=== PATIENT | male | born 1945 | race American Indian/Alaskan Native ===

== ENCOUNTER 2017-06-18 15:13 | Emergency (ER) | payer MEDICARE ==
[2017-06-18 15:24] VITALS: BP 133/69
--- NOTE | 2017-06-18 15:40 | EDM.PDOC ---
ED HPI GENERAL MEDICAL PROBLEM - General Chief Complaint: ENT Problem Stated Complaint: EAR INFECTION [id number] Time Seen by Provider: 06/18/17 15:30 Source of Information: Reports: Patient, RN, RN Notes Reviewed History Limitations: Reports: No Limitations - History of Present Illness INITIAL COMMENTS - FREE TEXT/NARRATIVE: Pt presents to the ER with c/o left ear itching and pain for about 1 week. He states he has been itching the ear and feels he may have scratched it and gotten an infection. He denies sinus problems, headache, cough, sore throat, fever, or chills. Onset: Gradual Left Ear Pain Score (Numeric/FACES): 5 - Related Data Allergies Allergy/AdvReac Type Severity Reaction Status Date / Time No Known Allergies Allergy Verified 06/18/17 15:19 Home Meds: Home Meds Aspirin 81 mg PO ONETIME 04/14/15 [History] Lisinopril 10 mg PO DAILY 04/14/15 [History] Past Medical History HEENT History: Reports: None Cardiovascular History: Reports: High Cholesterol, Hypertension Respiratory History: Reports: None Gastrointestinal History: Reports: None Genitourinary History: Reports: None Musculoskeletal History: Reports: None Neurological History: Reports: None Psychiatric History: Reports: None Endocrine/Metabolic History: Reports: None Hematologic History: Reports: None Immunologic History: Reports: None Oncologic (Cancer) History: Reports: None Dermatologic History: Reports: None - Infectious Disease History Infectious Disease History: Reports: None - Past Surgical History Head Surgeries/Procedures: Reports: None Social & Family History - Family History Family Medical History: Noncontributory - Tobacco Use Smoking Status *Q: Never Smoker Used Tobacco, but Quit: No Second Hand Smoke Exposure: No - Caffeine Use Caffeine Use: Reports: Coffee - Recreational Drug Use Recreational Drug Use: No ED ROS ENT - Review of Systems Review Of Systems: ROS reveals no pertinent complaints other than HPI. ED EXAM, ENT - Physical Exam Exam: See Below Exam Limited By: No Limitations General Appearance: Alert, WD/WN, No Apparent Distress Eye Exam: Bilateral Eye: EOMI, Normal Inspection Ears: Normal External Exam, Hearing Grossly Normal, Canal Discharge, TM Erythema Nose: Normal Inspection Mouth/Throat: Normal Inspection, Normal Gums, Normal Lips, Normal Oropharynx, Normal Teeth Head: Atraumatic, Normocephalic Neck: Normal Inspection, Supple, Non-Tender, Full Range of Motion Respiratory/Chest: No Respiratory Distress, Lungs Clear, Normal Breath Sounds, No Accessory Muscle Use, Chest Non-Tender Cardiovascular: Normal Peripheral Pulses, Regular Rate, Rhythm, No Edema, No Gallop, No JVD, No Murmur, No Rub GI/Abdominal: Normal Bowel Sounds, Soft, Non-Tender, No Organomegaly, No Distention, No Abnormal Bruit, No Mass (Male) Exam: Deferred Rectal (Males) Exam: Deferred Back: Normal Inspection, Full Range of Motion Extremities: Normal Inspection, Normal Range of Motion, Non-Tender, No Pedal Edema, Normal Capillary Refill Neurological: Alert, Oriented, CN II-XII Intact, Normal Cognition, Normal Gait, Normal Reflexes, No Motor/Sensory Deficits Psychiatric: Normal Affect, Normal Mood Skin: Warm, Dry, Intact, Normal Color, No Rash Lymphatic: No Adenopathy Course - Vital Signs Last Recorded V/S: Last Vital Signs Temp 98.1 F 06/18/17 15:24 Pulse 52 L 06/18/17 15:24 Resp 16 06/18/17 15:24 BP 133/69 06/18/17 15:24 Pulse Ox 98 06/18/17 15:24 Departure - Departure Time of Disposition: 15:37 Disposition: Home, Self-Care 01 Condition: Good Clinical Impression: Otitis media Qualifiers: Otitis media type: suppurative Chronicity: acute Laterality: left Recurrence: not specified as recurrent Spontaneous tympanic membrane rupture: without spontaneous rupture Qualified Code(s): H66.002 - Acute suppurative otitis media without spontaneous rupture of ear drum, left ear - Discharge Information Instructions: Otitis Media, Adult, [id number] Referrals: PCP,None [Primary Care Provider] - Forms: ED Department Discharge Additional Instructions: Follow up with your primary care facility if no improvement. RX: Amoxicillin
== END 2017-06-18 15:53 | disposition home or self-care (01) ==
LOC: DL.ED 15:13
DX: H66.002 Acute suppurative otitis media without spontaneous rupture of ear drum, left ear (principal); E78.00 Pure hypercholesterolemia, unspecified; I10 Essential (primary) hypertension; Z79.82 Long term (current) use of aspirin; Z79.899 Other long term (current) drug therapy
CPT/HCPCS: 99282; 99283

== ENCOUNTER 2021-02-21 11:49 | Emergency (ER) | payer MEDICARE ==
[2021-02-21 13:31] VITALS: BP 153/73; PULSE 59
--- NOTE | 2021-02-21 14:16 | EDM.PDOC ---
<Kevyn García Cayla - Last Filed: 02/21/21 14:23> ED HPI GENERAL MEDICAL PROBLEM - General Chief Complaint: Upper Extremity Injury/Pain Stated Complaint: RIGHT ARM INFECTION Time Seen by Provider: 02/21/21 13:30 Source of Information: Reports: Patient History Limitations: Reports: No Limitations - History of Present Illness INITIAL COMMENTS - FREE TEXT/NARRATIVE: 75 y/o M c/o 2 raised lesions on his posterior R forearm that appeared several days ago. Pt states the lesions have been draining some clear fluid and are moderately tender to palpation. Denies feve, cigh, chills, drugs, IV drugs, etoh, Onset: Gradual Duration: Day(s): Location: Reports: Upper Extremity, Right Quality: Reports: Sharp Severity: Mild Improves with: Reports: None Worsens with: Reports: None right arm Pain Score (Numeric/FACES): 6 - Related Data Allergies Allergy/AdvReac Type Severity Reaction Status Date / Time No Known Allergies Allergy Verified 02/21/21 13:31 Home Meds: Home Meds Aspirin 81 mg PO ONETIME 04/14/15 [History] atenoloL [Atenolol] 25 mg PO DAILY 02/21/21 [History] atorvaSTATin [Lipitor] 10 mg PO BEDTIME 02/21/21 [History] Past Medical History HEENT History: Reports: None Cardiovascular History: Reports: High Cholesterol, Hypertension Respiratory History: Reports: None Gastrointestinal History: Reports: None Genitourinary History: Reports: None Musculoskeletal History: Reports: None Neurological History: Reports: None Psychiatric History: Reports: None Endocrine/Metabolic History: Reports: None Hematologic History: Reports: None Immunologic History: Reports: None Oncologic (Cancer) History: Reports: None Dermatologic History: Reports: None - Infectious Disease History Infectious Disease History: Reports: None - Past Surgical History Head Surgeries/Procedures: Reports: None Social & Family History - Family History Family Medical History: No Pertinent Family History - Tobacco Use Tobacco Use Status *Q: Never Tobacco User - Caffeine Use Caffeine Use: Reports: Coffee - Recreational Drug Use Recreational Drug Use: No Review of Systems - Review of Systems Review Of Systems: Comprehensive ROS is negative, except as noted in HPI. ED EXAM, GENERAL - Physical Exam Exam: See Below Exam Limited By: No Limitations General Appearance: Alert, WD/WN, No Apparent Distress Respiratory/Chest: No Respiratory Distress, Lungs Clear, Normal Breath Sounds, No Accessory Muscle Use, Chest Non-Tender Cardiovascular: Normal Peripheral Pulses, Regular Rate, Rhythm, No Edema, No Gallop, No JVD, No Murmur, No Rub Peripheral Pulses: 2+: Radial (L), Radial (R) GI/Abdominal: Soft, Non-Tender (Male) Exam: Deferred Rectal (Males) Exam: Deferred Back Exam: Normal Inspection, Full Range of Motion Extremities: Other (2, 1.5 cm raised lesions on posterior forearm with some Serosanguineous drainage) Course - Re-Assessments/Exams Free Text/Narrative Re-Assessment/Exam: 02/21/21 14:24 Discussed exam findings with patient and informed about the RX for Keflex. Pt understood instructions. Departure - Departure Time of Disposition: 14:25 Disposition: Home, Self-Care 01 Condition: Good Clinical Impression: Skin abscess Qualifiers: Site of cutaneous abscess: extremity Site of cutaneous abscess of extremity: upper extremity Laterality: right Qualified Code(s): L02.413 - Cutaneous abscess of right upper limb - Discharge Information *PRESCRIPTION DRUG MONITORING PROGRAM REVIEWED*: Not Applicable *COPY OF PRESCRIPTION DRUG MONITORING REPORT IN PATIENT SHIRLEY: Not Applicable Instructions: Skin Abscess, [id number] Forms: ED Department Discharge Additional Instructions: RX: Keflex Use tylenol or ibuprofen for pain as needed. If symptoms do not improve in one week contact your primary care facility. If any new symptoms or concerns develop contact your primary care facility or return to the ER. <Timoteo Casey - Last Filed: 02/21/21 14:30> Course - Vital Signs Last Recorded V/S: Last Vital Signs Temp 97.6 F 02/21/21 13:27 Pulse 59 L 02/21/21 13:27 Resp 20 02/21/21 13:27 BP 153/73 H 02/21/21 13:27 Pulse Ox 98 02/21/21 13:27 Sepsis Event Note (ED) - Focused Exam Vital Signs: Vital Signs Temp Pulse Resp BP Pulse Ox 02/21/21 13:27 97.6 F 59 L 20 153/73 H 98
== END 2021-02-21 14:54 | disposition home or self-care (01) ==
LOC: DL.ED 11:49
DX: L02.413 Cutaneous abscess of right upper limb (principal); E78.00 Pure hypercholesterolemia, unspecified; I10 Essential (primary) hypertension; Z79.899 Other long term (current) drug therapy; Z79.82 Long term (current) use of aspirin
CPT/HCPCS: 99282

== ENCOUNTER 2022-07-05 10:31 | Emergency (ER) | payer MEDICARE ==
[2022-07-05 11:09] VITALS: BP 137/84; PULSE 61
== END 2022-07-05 11:20 | disposition home or self-care (01) ==
LOC: DL.ED 10:31
DX: R11.0 Nausea (principal); E78.00 Pure hypercholesterolemia, unspecified; I10 Essential (primary) hypertension; Z79.82 Long term (current) use of aspirin; Z79.899 Other long term (current) drug therapy
CPT/HCPCS: 99283

== ENCOUNTER 2023-01-25 20:07 | Emergency (ER) | payer MEDICARE, OTHER ==
[2023-01-25] MEDS ORDERED: Fluorescein 1 MG Ophth Strip EYERT ONE (20:19)
[2023-01-25] MEDS ORDERED: Ciprofloxacin 0.3% Ophth Soln 5 ML Bottle EYERT ONE (20:25)
[2023-01-25 20:56] VITALS: BP 174/80; PULSE 91
== END 2023-01-25 20:53 | disposition home or self-care (01) ==
LOC: DL.ED 20:07
DX: S05.01XA Injury of conjunctiva and corneal abrasion without foreign body, right eye, initial encounter (principal); E78.00 Pure hypercholesterolemia, unspecified; I10 Essential (primary) hypertension; Z79.82 Long term (current) use of aspirin; Z79.899 Other long term (current) drug therapy; Z86.16 Personal history of COVID-19; X58.XXXA Exposure to other specified factors, initial encounter
CPT/HCPCS: 99282; 99283; A9270-GY